=== PATIENT | female | born 1930 | race Caucasian/White ===

== ENCOUNTER 2017-12-25 19:07 | Inpatient (IN) | payer OTHER ==
[~2017-12-25] VITALS: Ht 157.5 cm; Wt 63.7 kg
[~2017-12-25 19:07] MED LIST: CALCTAB5 PO
[2017-12-25] MEDS ORDERED: SODIUM CHLORIDE 0.9% 1000ML 1,000 ML IV STA (19:23)
[2017-12-25] MEDS ORDERED: CEFTRIAXONE SOD INJ 1 GM ADDVIAL IV STA (19:24)
--- NOTE | 2017-12-25 19:34 | EMERGENCY ROOM VISIT NOTE ---
History Report prepared by Juno: Sandra Del Toro Under the Supervision of: Dr. Stefan Vazquez D.O. First contact with patient: 19:16 Chief Complaint: INFECTION Stated Complaint: INFECTION IN LEFT LEG History of Present Illness The patient is an 87 year old female who presents to the Emergency Room with complaints of a worsening infection in her left foot starting yesterday morning. The patient states that she noticed it was red and swollen yesterday. She states that she "got real sick" when it happened. She states that it feels like it has been more tender than normal. The patient denies being on any antibiotics, fever, cough, rhinorrhea, chest pain, and shortness of breath. Source of History: patient Onset: yesterday morning Position: foot (left) Quality: other (infection) Timing: worsening Associated Symptoms: No fevers, No cough, No chest pain, No SOB Note: The patient complains of her leg being tender. The patient denies the use of antibiotics and rhinorrhea. Review of Systems See HPI for pertinent positives & negatives. A total of 10 systems reviewed and were otherwise negative. Past Medical & Surgical Medical Problems: (1) HTN (hypertension) Family History No pertinent family history Social History Smoking Status: Never Smoker Alcohol Use: none Marital Status: single Housing Status: lives alone Current/Historical Medications Scheduled Aspirin (Aspirin Ec), 81 MG PO DAILY Aspirin-Caffeine (Anacin 400-32 mg), 3 TABS PO PRN Calcium (Calcium), 3 TABS PO DAILY Cholecalciferol (Vitamin D), 1 TAB PO DAILY Multivitamins/Minerals (Mvi With Minerals), 1 TAB PO DAILY Vitamin E (Vitamin E), 1 TAB PO DAILY [Bp Pill], 25 MG PO DAILY [Potassium Otc], 1 TAB PO DAILY Allergies Coded Allergies: Clavulanic Acid (Unverified Allergy, Mild, 2/5/10) Penicillins (Unverified Allergy, Mild, 2/5/10) Uncoded Allergies: BETALACTAMASEIN (Allergy, Mild, 2/5/10) Physical Exam Vital Signs Date Time Temp Pulse Resp B/P (MAP) Pulse Ox O2 Delivery O2 Flow Rate FiO2 12/25/17 20:31 103 18 144/58 95 Room Air 12/25/17 19:13 36.8 108 20 174/93 99 Room Air Physical Exam GENERAL: Sitting up in bed, alert, well appearing for stated age, no acute distress, nontoxic EYE EXAM: normal conjunctiva. OROPHARYNX: no exudate, no erythema, lips, buccal mucosa, and tongue normal and mucous membranes are moist NECK: supple, no nuchal rigidity, no adenopathy, non-tender LUNGS: Clear to auscultation. Normal chest wall mechanics HEART: no murmurs, S1 normal and S2 normal ABDOMEN: abdomen soft, non-tender, normo-active bowel sounds, no masses, no rebound or guarding. BACK: Back is symmetrical on inspection and there is no deformity, no midline tenderness, no CVA tenderness. SKIN: No bruising. Circumferential erythema around the left calf tracking up through the left thigh. Skin is warm and tender. UPPER EXTREMITIES: upper extremities are grossly normal. LOWER EXTREMITIES: Pitting edema in the left lower extremity. NEURO EXAM: Normal sensorium, cranial nerves II-XII grossly intact, normal speech, no gross weakness of arms, no gross weakness of legs. Medical Decision & Procedures ER Provider Diagnostic Interpretation: Radiology results as stated below per my review and the radiologist's interpretation: CHEST ONE VIEW PORTABLE CLINICAL HISTORY: 87 years-old Female presenting with fever. TECHNIQUE: Portable upright AP view of the chest was obtained. COMPARISON: None. FINDINGS: Atherosclerosis of the aortic arch. Cardiac silhouette normal in size. Elevation of the right hemidiaphragm. Minimal basilar opacities. No pleural effusion or pneumothorax. Degenerative changes of the thoracic spine. Old fractures of the posterior lateral left upper ribs noted. Upper abdomen normal. IMPRESSION: 1. Minimal basilar opacities likely atelectasis or scarring. No convincing evidence of acute cardiopulmonary disease. Electronically signed by: Rush Spencer M.D. 12/25/2017 8:35 PM Dictated Date/Time: 12/25/2017 8:33 PM L VENOUS DOPP LOWER EXT UNILAT CLINICAL HISTORY: 87 years-old Female presenting with lle swelling. TECHNIQUE: Real-time grayscale and color and spectral Doppler ultrasound imaging of the veins of the left lower extremity was performed. Compression and augmentation were also utilized. COMPARISON: None. FINDINGS: LEFT: Common femoral vein: Patent. Greater saphenous vein: Patent. Deep femoral vein: Patent. Femoral vein: Patent. Popliteal vein: Patent. Calf veins: Patent. Other: Subcutaneous edema. IMPRESSION: No evidence of deep venous thrombosis. Electronically signed by: Rush Spencer M.D. 12/25/2017 8:33 PM Dictated Date/Time: 12/25/2017 8:32 PM Laboratory Results 12/25/17 19:40 Red Blood Count 4.47, Mean Corpuscular Volume 88.4, Mean Corpuscular Hemoglobin 29.5, Mean Corpuscular Hemoglobin Concent 33.4, Mean Platelet Volume 12.1, Neutrophils (%) (Auto) 83.4, Lymphocytes (%) (Auto) 8.5, Monocytes (%) (Auto) 7.6, Eosinophils (%) (Auto) 0.1, Basophils (%) (Auto) 0.2, Neutrophils # (Auto) 16.11, Lymphocytes # (Auto) 1.64, Monocytes # (Auto) 1.47, Eosinophils # (Auto) 0.02, Basophils # (Auto) 0.03 12/25/17 19:40 Test 12/25/17 19:40 12/25/17 19:45 12/25/17 19:49 White Blood Count 19.31 K/uL (4.8-10.8) Red Blood Count 4.47 M/uL (4.2-5.4) Hemoglobin 13.2 g/dL (12.0-16.0) Hematocrit 39.5 % (37-47) Mean Corpuscular Volume 88.4 fL (80-100) Mean Corpuscular Hemoglobin 29.5 pg (25-34) Mean Corpuscular Hemoglobin Concent 33.4 g/dl (32-36) Platelet Count 146 K/uL (130-400) Mean Platelet Volume 12.1 fL (7.4-10.4) Neutrophils (%) (Auto) 83.4 % Lymphocytes (%) (Auto) 8.5 % Monocytes (%) (Auto) 7.6 % Eosinophils (%) (Auto) 0.1 % Basophils (%) (Auto) 0.2 % Neutrophils # (Auto) 16.11 K/uL (1.4-6.5) Lymphocytes # (Auto) 1.64 K/uL (1.2-3.4) Monocytes # (Auto) 1.47 K/uL (0.11-0.59) Eosinophils # (Auto) 0.02 K/uL (0-0.5) Basophils # (Auto) 0.03 K/uL (0-0.2) RDW Standard Deviation 45.2 fL (36.4-46.3) RDW Coefficient of Variation 13.9 % (11.5-14.5) Immature Granulocyte % (Auto) 0.2 % Immature Granulocyte # (Auto) 0.04 K/uL (0.00-0.02) Prothrombin Time 12.0 SECONDS (9.0-12.0) Prothromb Time International Ratio 1.1 (0.9-1.1) Est Creatinine Clear Calc Drug Dose 28.3 ml/min Estimated GFR () 45.7 Estimated GFR (Non- 39.4 BUN/Creatinine Ratio 24.8 (10-20) Calcium Level 8.8 mg/dl (8.5-10.1) Magnesium Level 1.8 mg/dl (1.8-2.4) Total Bilirubin 0.5 mg/dl (0.2-1) Direct Bilirubin 0.2 mg/dl (0-0.2) Aspartate Amino Transf (AST/SGOT) 49 U/L (15-37) Alanine Aminotransferase (ALT/SGPT) 26 U/L (12-78) Alkaline Phosphatase 95 U/L (45-117) Total Creatine Kinase 1145 U/L (26-192) Creatine Kinase MB 7.2 ng/ml (0.5-3.6) Creatine Kinase MB Ratio 0.6 (0-3.0) Troponin I 0.017 ng/ml (0-0.045) Total Protein 7.4 gm/dl (6.4-8.2) Albumin 3.0 gm/dl (3.4-5.0) Bedside Lactic Acid Venous 2.29 mmol/L (0.90-1.70) Bedside Hemoglobin 14.3 g/dl (12.0-16.0) Bedside Hematocrit 42 % (37-47) Bedside Sodium 137 mEq/L (135-144) Bedside Potassium 3.1 mEq/L (3.3-5.0) Bedside Chloride 95 mEq/L (101-112) Bedside Total CO2 29 mEq/l (24-31) Anion Gap 17.0 mmol/L (16-25) Bedside Blood Urea Nitrogen 30 mg/dl (7-18) Bedside Creatinine 1.3 mg/dl (0.6-1.3) Bedside Glucose (other) 115 mg/dl (70-99) Bedside Ionized Calcium (Marisela) 1.03 mmol/l (1.12-1.32) Laboratory results per my review. Medications Administered Medications (Trade) Dose Ordered Sig/Carmen Route Start Time Stop Time Status Last Admin Dose Admin Sodium Chloride 1,000 ml @ 999 mls/hr Q1H1M STAT IV 12/25/17 19:23 12/25/17 20:23 DC 12/25/17 19:54 999 MLS/HR Ceftriaxone Sodium (Rocephin Inj) 1 gm NOW STAT IV 12/25/17 19:24 12/25/17 19:25 DC 12/25/17 19:54 1 GM Potassium Chloride (Klor-Con M10) 40 meq NOW STAT PO 12/25/17 21:11 12/25/17 21:12 DC 12/25/17 21:40 40 MEQ ECG Per My Interpretation Indication: tachycardia Rate (beats per minute): 105 Rhythm: sinus tachycardia Findings: nonspecific-ST abn (Inferior, lateral), RBBB, left axis deviation ED Course ED COURSE: Vital signs were reviewed and showed situational hypertension and tachycardia. The patients medical record was reviewed The above diagnostic studies were performed and reviewed. ED treatments and interventions as stated above. 1917: The patient was evaluated in room C7. A complete history and physical examination was performed. 1922: Ordered NSS 1000 ml @ 999 mls/hr IV. 1923: Ordered Rocephin Inj 1 gm IV. 2039: Upon reevaluation, the patient is resting comfortably. I discussed my findings with the patient and she understands and agrees with the treatment plan. Based on the patients age, coexisting illnesses, exam and lab findings the decision to treat as an inpatient was made. The patient remained stable while under my care. The patient will be evaluated for further management. 2042: I reviewed the patient's case with [place]. [place] [facility] [place] She will evaluate the patient for further management. Medical Decision Differential diagnosis includes etiologies such as cellulitis, abscess, MRSA infection, DVT, necrotizing fasciitis, dermatitis, drug eruption, as well as others were entertained. Patient is an 87-year-old female who presents the ER for a cellulitis of her left lower extremity. It involves the entire calf tracking up to the groin. Patient is tachycardic in the low 100s. White count of 19,000. Please do not feel slightly low 2.9. Lactic acid was elevated at 2.2. Patient was given IV Rocephin. Patient was septic secondary to a cellulitis. She was given IV antibiotics and fluids. She was updated at bedside. She is admitted to internal medicine. Duplex of the left lower extremity was negative. Medication Reconcilliation Current Medication List: was personally reviewed by me Blood Pressure Screening Patient's blood pressure: Elevated blood pressure Blood pressure disposition: Elevated BP felt to be situational Consults Time Called: 2040 Consulting Physician: Dr. Leela KING Hospitalist Returned Call: 2042 I reviewed the patient's case with Dr. Leela KING Hospitalist. She will evaluate the patient for further management. Impression Primary Impression: Sepsis Additional Impressions: Cellulitis Hypokalemia Scribe Attestation The scribe's documentation has been prepared under my direction and personally reviewed by me in its entirety. I confirm that the note above accurately reflects all work, treatment, procedures, and medical decision making performed by me. Departure Information Dispostion Being Evaluated By Hospitalist Referrals Wilver Renee M.D. (PCP) Patient Instructions My [facility] Problem Qualifiers Primary Impression: Sepsis Sepsis type: sepsis due to unspecified organism Qualified Codes: A41.9 - Sepsis, unspecified organism Additional Impressions: Cellulitis Site of cellulitis: unspecified site Qualified Codes: L03.90 - Cellulitis, unspecified
[2017-12-25 19:58] LABS: ISTAT CREATININE 1.3 mg/dl (0.6-1.3); ISTAT IONIZED CALCIUM 1.03 mmol/l (1.12-1.32); ISTAT POTASSIUM 3.1 mEq/L (3.3-5.0)
[2017-12-25 20:25] LABS: BASO % 0.2 %; BASO ABS # 0.03 K/uL (0-0.2); EOS % 0.1 %; EOS ABS # 0.02 K/uL (0-0.5); HEMATOCRIT 39.5 % (37-47); HEMOGLOBIN 13.2 g/dL (12.0-16.0); IG# 0.04 K/uL (0.00-0.02); LYMPH % 8.5 %; LYMPH ABS # 1.64 K/uL (1.2-3.4); MEAN CELL VOLUME 88.4 fL (80-100); MEAN CORPUSCULAR HEMOGLOBIN 29.5 pg (25-34); MEAN CORPUSCULAR HGB CONC 33.4 g/dl (32-36); MEAN PLATELET VOLUME 12.1 fL (7.4-10.4); MONO % 7.6 %; MONO ABS # 1.47 K/uL (0.11-0.59); NEUT % 83.4 %; NEUT ABS # 16.11 K/uL (1.4-6.5); PLATELET COUNT 146 K/uL (130-400); RED CELL DISTRIBUTION WIDTH CV 13.9 % (11.5-14.5); RED CELL DISTRIBUTION WIDTH SD 45.2 fL (36.4-46.3); WHITE BLOOD COUNT 19.31 K/uL (4.8-10.8)
[2017-12-25 20:32] LABS: INR 1.1 (0.9-1.1)
--- NOTE | 2017-12-25 20:34 | DIAGNOSTIC IMAGING REPORT ---
L VENOUS DOPP LOWER EXT UNILAT CLINICAL HISTORY: 87 years-old Female presenting with lle swelling. TECHNIQUE: Real-time grayscale and color and spectral Doppler ultrasound imaging of the veins of the left lower extremity was performed. Compression and augmentation were also utilized. COMPARISON: None. FINDINGS: LEFT: Common femoral vein: Patent. Greater saphenous vein: Patent. Deep femoral vein: Patent. Femoral vein: Patent. Popliteal vein: Patent. Calf veins: Patent. Other: Subcutaneous edema. IMPRESSION: No evidence of deep venous thrombosis. Electronically signed by: Rush Spencer M.D. 12/25/2017 8:33 PM Dictated Date/Time: 12/25/2017 8:32 PM
--- NOTE | 2017-12-25 20:36 | DIAGNOSTIC IMAGING REPORT ---
CHEST ONE VIEW PORTABLE CLINICAL HISTORY: 87 years-old Female presenting with fever. TECHNIQUE: Portable upright AP view of the chest was obtained. COMPARISON: None. FINDINGS: Atherosclerosis of the aortic arch. Cardiac silhouette normal in size. Elevation of the right hemidiaphragm. Minimal basilar opacities. No pleural effusion or pneumothorax. Degenerative changes of the thoracic spine. Old fractures of the posterior lateral left upper ribs noted. Upper abdomen normal. IMPRESSION: 1. Minimal basilar opacities likely atelectasis or scarring. No convincing evidence of acute cardiopulmonary disease. Electronically signed by: Rush Spencer M.D. 12/25/2017 8:35 PM Dictated Date/Time: 12/25/2017 8:33 PM
[2017-12-25 20:55] LABS: CALCIUM 8.8 mg/dl (8.5-10.1); CKMB 7.2 ng/ml (0.5-3.6); CREATININE 1.23 mg/dl (0.60-1.20); POTASSIUM 2.9 mmol/L (3.5-5.1); TOTAL PROTEIN 7.4 gm/dl (6.4-8.2)
[2017-12-25] MEDS ORDERED: POTASSIUM CHLORIDE 10 MEQ TABCR PO STA (21:11)
[2017-12-25] MEDS ORDERED: CHOL400T5 PO (21:15)
[2017-12-25] MEDS ORDERED: ASPI81TA28 PO (21:15)
[2017-12-25] MEDS ORDERED: CALC600T37 PO (21:15)
[2017-12-25] MEDS ORDERED: MULT-513 PO (21:15)
[2017-12-25] MEDS ORDERED: BP PILL PO (21:15)
[2017-12-25] MEDS ORDERED: VITA1TAB4 PO (21:15)
[2017-12-25] MEDS ORDERED: POTASSIUM OTC PO (21:15)
[2017-12-25] MEDS ORDERED: ASPI400T11 PO (21:15)
[2017-12-25] MEDS ORDERED: ONDANSETRON INJ 2 MG/ML 2 ML VIAL IV PRN (21:30)
[2017-12-25] MEDS ORDERED: ACETAMINOPHEN 325 MG TAB PO PRN (21:30)
[2017-12-25 22:52] VITALS: BP 150/73; PULSE 108; TEMP 37; O2SAT 97
--- NOTE | 2017-12-25 22:52 | History and Physical ---
History & Physical Date & Time of Service: Dec 25, 2017 at 22:28 Chief Complaint: Infection In Left Leg Primary Care Physician: Wilver Renee M.D. History of Present Illness Source: patient, family Patient is a 87 year old female with no significant past medical history that presents with a left lower extremity infection. The patient states she first noticed redness of her left lower extremity on Khoa morning. She complained of some associated nausea at that time and had vomiting with breakfast, and has since had minimal PO intake of food or fluids. She has a a bunion of the left foot although no other lower extremity injuries, ulcerations, or other skin changes. She states the redness first started around the ankle and has continued to progress up the leg. She denies any pain in the lower extremity, and no systemic symptoms of infection including fevers, chills or sweats. She had a previous episode of cellulitis in the same leg several years ago requiring hospitalization, but has had no recurring episodes since. Past Medical/Surgical History Medical Problems: (1) HTN (hypertension) Family History No pertinent family history Social History Smoking Status: Never Smoker Marital Status: single Allergies Coded Allergies: Clavulanic Acid (Unverified Allergy, Mild, 06/14/09) Penicillins (Unverified Allergy, Mild, 06/14/09) Uncoded Allergies: BETALACTAMASEIN (Allergy, Mild, 06/14/09) Home Medications Scheduled Aspirin (Aspirin Ec), 81 MG PO DAILY Aspirin-Caffeine (Anacin 400-32 mg), 3 TABS PO PRN Calcium (Calcium), 3 TABS PO DAILY Cholecalciferol (Vitamin D), 1 TAB PO DAILY Multivitamins/Minerals (Mvi With Minerals), 1 TAB PO DAILY Vitamin E (Vitamin E), 1 TAB PO DAILY [Bp Pill], 25 MG PO DAILY [Potassium Otc], 1 TAB PO DAILY Review of Systems Constitutional: No fever, No chills, No sweats Respiratory: No cough, No sputum, No wheezing, No shortness of breath, No dyspnea on exertion Cardiovascular: No chest pain, No orthopnea Abdomen: No pain, No nausea, No vomiting, No diarrhea, No constipation Musculoskeletal: + swelling, No calf pain Genitourinary - Female: No dysuria, No urinary frequency, No urinary urgency Neurologic: No paralysis, No weakness, No numbness/tingling, No vertigo Endocrine: No fatigue Integumentary: + rash, + color change, + problem reported (Redness of the right leg), No itch Physical Exam Vital Signs Date Time Temp Pulse Resp B/P (MAP) Pulse Ox O2 Delivery O2 Flow Rate FiO2 12/25/17 22:16 100 18 143/80 97 12/25/17 22:00 104 18 143/80 97 Room Air 12/25/17 20:31 103 18 144/58 95 Room Air 12/25/17 19:13 36.8 108 20 174/93 99 Room Air General Appearance: WD/WN, no apparent distress Head: normocephalic, atraumatic Eyes: normal inspection, sclerae normal Neck: supple, no carotid bruits Respiratory/Chest: chest non-tender, lungs clear, normal breath sounds Cardiovascular: regular rate, rhythm, no edema, no gallop Abdomen/GI: normal bowel sounds, non tender, soft Extremities/Musculoskelatal: no calf tenderness, + pedal edema, + swelling (2+ pitting), + pertinent finding (Erythema of the left lower extremity extending from the dorsum of the foot to the medial thigh. Margins drawn to monitor progress. Shiny appearance to the skin. Circumferential erythema. No bullae, crepitus, discharge, or weeping from the skin. Warm to toouch. Nontender.) Neurologic/Psych: alert, normal mood/affect, oriented x 3 Diagnostics Laboratory Results Results Past 24 Hours Test 12/25/17 19:40 12/25/17 19:45 12/25/17 19:49 12/25/17 21:50 Range/Units White Blood Count 19.31 4.8-10.8 K/uL Red Blood Count 4.47 4.2-5.4 M/uL Hemoglobin 13.2 12.0-16.0 g/dL Hematocrit 39.5 37-47 % Mean Corpuscular Volume 88.4 80-100 fL Mean Corpuscular Hemoglobin 29.5 25-34 pg Mean Corpuscular Hemoglobin Concent 33.4 32-36 g/dl Platelet Count 146 130-400 K/uL Mean Platelet Volume 12.1 7.4-10.4 fL Neutrophils (%) (Auto) 83.4 % Lymphocytes (%) (Auto) 8.5 % Monocytes (%) (Auto) 7.6 % Eosinophils (%) (Auto) 0.1 % Basophils (%) (Auto) 0.2 % Neutrophils # (Auto) 16.11 1.4-6.5 K/uL Lymphocytes # (Auto) 1.64 1.2-3.4 K/uL Monocytes # (Auto) 1.47 0.11-0.59 K/uL Eosinophils # (Auto) 0.02 0-0.5 K/uL Basophils # (Auto) 0.03 0-0.2 K/uL RDW Standard Deviation 45.2 36.4-46.3 fL RDW Coefficient of Variation 13.9 11.5-14.5 % Immature Granulocyte % (Auto) 0.2 % Immature Granulocyte # (Auto) 0.04 0.00-0.02 K/uL Prothrombin Time 12.0 9.0-12.0 SECONDS Prothromb Time International Ratio 1.1 0.9-1.1 Sodium Level 136 136-145 mmol/L Potassium Level 2.9 3.5-5.1 mmol/L Chloride Level 97 98-107 mmol/L Carbon Dioxide Level 29 21-32 mmol/L Anion Gap 9.0 17.0 16-25 mmol/L Blood Urea Nitrogen 31 7-18 mg/dl Creatinine 1.23 0.60-1.20 mg/dl Est Creatinine Clear Calc Drug Dose 28.3 ml/min Estimated GFR () 45.7 Estimated GFR (Non- 39.4 BUN/Creatinine Ratio 24.8 10-20 Random Glucose 110 70-99 mg/dl Calcium Level 8.8 8.5-10.1 mg/dl Magnesium Level 1.8 1.8-2.4 mg/dl Total Bilirubin 0.5 0.2-1 mg/dl Direct Bilirubin 0.2 0-0.2 mg/dl Aspartate Amino Transf (AST/SGOT) 49 15-37 U/L Alanine Aminotransferase (ALT/SGPT) 26 12-78 U/L Alkaline Phosphatase 95 45-117 U/L Total Creatine Kinase 1145 26-192 U/L Creatine Kinase MB 7.2 0.5-3.6 ng/ml Creatine Kinase MB Ratio 0.6 0-3.0 Troponin I 0.017 0-0.045 ng/ml Total Protein 7.4 6.4-8.2 gm/dl Albumin 3.0 3.4-5.0 gm/dl Bedside Lactic Acid Venous 2.29 0.90-1.70 mmol/L Bedside Hemoglobin 14.3 12.0-16.0 g/dl Bedside Hematocrit 42 37-47 % Bedside Sodium 137 135-144 mEq/L Bedside Potassium 3.1 3.3-5.0 mEq/L Bedside Chloride 95 101-112 mEq/L Bedside Total CO2 29 24-31 mEq/l Bedside Blood Urea Nitrogen 30 7-18 mg/dl Bedside Creatinine 1.3 0.6-1.3 mg/dl Bedside Glucose (other) 115 70-99 mg/dl Bedside Ionized Calcium (Marisela) 1.03 1.12-1.32 mmol/l Urine Color YELLOW Urine Appearance CLEAR CLEAR Urine pH 6.5 4.5-7.5 Urine Specific Graham 1.016 1.000-1.030 Urine Protein 1+ NEG Urine Glucose (UA) NEG NEG Urine Ketones TRACE NEG Urine Occult Blood 1+ NEG Urine Nitrite NEG NEG Urine Bilirubin NEG NEG Urine Urobilinogen NEG NEG Urine Leukocyte Esterase SMALL NEG Urine WBC (Auto) 5-10 0-5 /hpf Urine RBC (Auto) 0-4 0-4 /hpf Urine Hyaline Casts (Auto) 1-5 0-5 /lpf Urine Epithelial Cells (Auto) 10-20 0-5 /lpf Urine Bacteria (Auto) NEG NEG Microbiology Results 12/25/17 Blood Culture, Received Pending 12/25/17 Blood Culture, Received Pending Impression Assessment and Plan Patient is a 87 year old female with no significant past medical history that presents with a left lower extremity infection. SIRS 2/2 LE Cellulitis - WBC 19.31 with Tachycardia - Lactic Acid 2.29 --> Repeat in 6 hour - Total CK 1145 - Blood Cultures x 2 - Daily CBC and BMP - IV NS @ 100 mls/hr (1L NS Bolus in ED) - Admit to Med/Surg Cellulitis - Rocephin 1gm IV Daily - Blood Cultures x 2 - Margins drawn around lower extremity cellulitis - Continue to monitor overnight, if continues to progress or present with worsening symptoms including crepitus or bullae low threshold for further imaging of infected extremity Hypokalemia - 3.1 - 40 mEq PO Potassium Chloride - Repeat BMP in AM KENNEDY - Creatinine of 1.23 with elevated BUN - Most likely 2/2 dehydration associate with poor PO intake - Fluids as above - Daily BMP Asymptomatic Bacteruria - Trace occult blood, WBC, and Leuk Est on UA with questionable dirty catch - Will be covered with Rocephin - Urine Culture DVT - Heparin Code Status - Full Code Resuscitation Status VTE Prophylaxis Will order VTE Prophylaxis: Yes Resident Tracking Resident Involvement: Resident Care Provided Care Provided: Adult Hospital Medicine History Patient seen and examined, chart reviewed, case discussed with and I agree with the assessment and plan as documented above. Briefly, patient is an 87yo female with history of HTN presenting with LLE cellulitis. Patient has had admission for the same in the past. She noted redness and warmth of her LLE starting on Wednesday AM which progressed to involve the leg and medial thigh. Also with nausea and vomiting. On physical exam she is afebrile, tachycardic at 103bpm, regular, BP 144/58, RR= 18 95% on room air Gen: non-toxic in appearance, AA&O x 4 HEENT: NC/AT, PERRL, EOMI, dry mucus membranes, neck supple, no JVD Heart: +S1/S2, regular, tachycardic, 2/6 AARON at 2nd right ICS with radiation across the precordium, no rubs/gallops Lungs: CTA bilaterally, no rales/rhonchi/wheezes Abd: +BS, soft, NT/ND, no masses Ext: LLE with 2+ pitting edema, warm to touch and slightly tender, severe erythema of foot, leg and into medial thigh, no crepitus/bullae, no pain beyond area of cellulitis. 1+ palpable pulses at DP and PT. sensation intact Labs and images reviewed: significant for leukocytosis, WBC=19.31, neutrophil predominant, elevated CK at 1145m K=3.1, lactate=2.29, BUN=31, Cr=1.23 Duplex US LLE negative for DVT Assessment/Plan: 87yo female with history of hypertension presenting with moderate nonpurulent cellulitis -Observation to medical floor -Blood cultures sent from ER, will follow -Ceftriaxone 1gm IV daily - if patient fails to improve or decompensates will broaden to include coverage for MRSA and Clindamycin -IVF - patient received 1L NSS in ER, will give additional liter at 100mL/hr -Repeat lactate in 6 hours -Repeat CK in AM after hydration -Monitor renal function, UOP, electrolytes. Avoid nephrotoxic agents. Renal dosing where appropriate -Electrolyte repletion -UA with +epi, no bacteria -Remainder of plan as above
[2017-12-25 23:30] VITALS: BP 150/73; PULSE 108; TEMP 37; O2SAT 97; Ht 157.5 cm; Wt 63.7 kg
[2017-12-26 08:00] VITALS: O2SAT 97
[2017-12-26 08:04] VITALS: BP 118/61; PULSE 104; TEMP 38.2; O2SAT 91
[2017-12-26] MEDS: HEPARIN SOD 5000 UNIT/0.5 ML CARP SQ SCH ×2 (08:25→17:54)
[2017-12-26 08:27] LABS: BASO % 0.1 %; BASO ABS # 0.01 K/uL (0-0.2); EOS % 0.1 %; EOS ABS # 0.01 K/uL (0-0.5); HEMATOCRIT 35.5 % (37-47); HEMOGLOBIN 11.3 g/dL (12.0-16.0); IG# 0.04 K/uL (0.00-0.02); LYMPH % 9.3 %; LYMPH ABS # 1.24 K/uL (1.2-3.4); MEAN CORPUSCULAR HEMOGLOBIN 28.3 pg (25-34); MEAN CORPUSCULAR HGB CONC 31.8 g/dl (32-36); MONO % 8.3 %; MONO ABS # 1.11 K/uL (0.11-0.59); NEUT % 81.9 %; NEUT ABS # 10.92 K/uL (1.4-6.5); PLATELET COUNT 124 K/uL (130-400); RED CELL DISTRIBUTION WIDTH CV 14.1 % (11.5-14.5); RED CELL DISTRIBUTION WIDTH SD 46.1 fL (36.4-46.3); WHITE BLOOD COUNT 13.33 K/uL (4.8-10.8)
[2017-12-26] MEDS ORDERED: SODIUM CHLORIDE 0.9% 1000ML 1,000 ML IV SCH (08:30)
[2017-12-26 08:42] LABS: CALCIUM 8.1 mg/dl (8.5-10.1); POTASSIUM 3.3 mmol/L (3.5-5.1)
[2017-12-26 08:43] LABS: CREATININE 0.82 mg/dl (0.60-1.20)
[2017-12-26] MEDS ORDERED: POTASSIUM CHLORIDE 20 MEQ TABCR PO STA (09:34)
--- NOTE | 2017-12-26 14:27 | Family Medicine Progress Note ---
Progress Note Date of Service Dec 26, 2017. Subjective Pt evaluation today including: conversation w/ patient, physical exam, chart review, lab review Pain: minimal L leg pain PO Intake: tolerating but decreased appetite Voiding: no voiding problems This AM pt denied any nausea/vomiting and reported improvement in L leg edema and erythema Also denied any hematuria, dysuria, or increased urinary frequency Constitutional: No fever Respiratory: No shortness of breath Cardiovascular: No chest pain Abdomen: No pain, No nausea, No vomiting Musculoskeletal: + problem reported (L leg pain and skin infection ) Female : No dysuria, No urinary frequency, No hematuria Neurologic: No problem reported Medications Current Inpatient Medications Medications (Trade) Dose Ordered Sig/Carmen Route Start Time Stop Time Status Last Admin Dose Admin Acetaminophen (Tylenol Tab) 650 mg Q4H PRN PO 12/25/17 21:30 01/24/18 21:29 Ondansetron HCl (Zofran Inj) 4 mg Q6H PRN IV 12/25/17 21:30 01/24/18 21:29 Heparin Sodium (Porcine) (Heparin Sq 5000 Unit/0.5ml) 5,000 unit Q12H SQ 12/26/17 06:00 01/25/18 05:59 12/26/17 08:25 5,000 UNIT Ceftriaxone Sodium 1 gm/ Dextrose 50 ml @ 100 mls/hr Q24H IV 12/26/17 20:00 01/04/18 19:59 Sodium Chloride 1,000 ml @ 100 mls/hr Q10H IV 12/26/17 08:30 12/26/17 18:29 12/26/17 08:36 100 MLS/HR Objective Vital Signs Date Time Temp Pulse Resp B/P (MAP) Pulse Ox O2 Delivery O2 Flow Rate FiO2 12/26/17 08:04 38.2 104 18 118/61 (80) 91 Room Air 12/26/17 08:00 97 Room Air 12/25/17 23:30 37.0 108 18 150/73 97 Room Air 12/25/17 22:52 37.0 108 18 150/73 (98) 97 Room Air 12/25/17 22:16 100 18 143/80 97 12/25/17 22:00 104 18 143/80 97 Room Air 12/25/17 20:31 103 18 144/58 95 Room Air 12/25/17 19:13 36.8 108 20 174/93 99 Room Air Physical Exam General Appearance: no apparent distress Eyes: normal inspection ENT: hearing grossly normal Respiratory/Chest: + decreased breath sounds (bi-basilar), + crackles (LLL) Cardiovascular: regular rate, rhythm, + systolic murmur (2/6) Abdomen: normal bowel sounds, non tender, soft Extremities: non-tender (RLE), no pedal edema (R leg) Neurologic/Psychiatric: alert, oriented x 3 Skin: + pertinent finding (LE 1+ edema with now improved erythema (below margins drawan and less intense), warm to touch, and slightly TTP, no crepitus or bullae) Laboratory Results 12/26/17 07:34 Red Blood Count 3.99, Mean Corpuscular Volume 89.0, Mean Corpuscular Hemoglobin 28.3, Mean Corpuscular Hemoglobin Concent 31.8, Mean Platelet Volume 12.0, Neutrophils (%) (Auto) 81.9, Lymphocytes (%) (Auto) 9.3, Monocytes (%) (Auto) 8.3, Eosinophils (%) (Auto) 0.1, Basophils (%) (Auto) 0.1, Neutrophils # (Auto) 10.92, Lymphocytes # (Auto) 1.24, Monocytes # (Auto) 1.11, Eosinophils # (Auto) 0.01, Basophils # (Auto) 0.01 12/26/17 07:34 Test 12/25/17 19:40 12/25/17 19:45 12/25/17 19:49 12/25/17 21:50 Prothrombin Time 12.0 SECONDS (9.0-12.0) Prothromb Time International Ratio 1.1 (0.9-1.1) Magnesium Level 1.8 mg/dl (1.8-2.4) Total Bilirubin 0.5 mg/dl (0.2-1) Direct Bilirubin 0.2 mg/dl (0-0.2) Aspartate Amino Transf (AST/SGOT) 49 U/L (15-37) Alanine Aminotransferase (ALT/SGPT) 26 U/L (12-78) Alkaline Phosphatase 95 U/L (45-117) Creatine Kinase MB 7.2 ng/ml (0.5-3.6) Creatine Kinase MB Ratio 0.6 (0-3.0) Troponin I 0.017 ng/ml (0-0.045) Total Protein 7.4 gm/dl (6.4-8.2) Albumin 3.0 gm/dl (3.4-5.0) Bedside Lactic Acid Venous 2.29 mmol/L (0.90-1.70) Bedside Hemoglobin 14.3 g/dl (12.0-16.0) Bedside Hematocrit 42 % (37-47) Bedside Sodium 137 mEq/L (135-144) Bedside Potassium 3.1 mEq/L (3.3-5.0) Bedside Chloride 95 mEq/L (101-112) Bedside Total CO2 29 mEq/l (24-31) Bedside Blood Urea Nitrogen 30 mg/dl (7-18) Bedside Creatinine 1.3 mg/dl (0.6-1.3) Bedside Glucose (other) 115 mg/dl (70-99) Bedside Ionized Calcium (Marisela) 1.03 mmol/l (1.12-1.32) Urine Color YELLOW Urine Appearance CLEAR (CLEAR) Urine pH 6.5 (4.5-7.5) Urine Specific [employer] 1.016 (1.000-1.030) Urine Protein 1+ (NEG) Urine Glucose (UA) NEG (NEG) Urine Ketones TRACE (NEG) Urine Occult Blood 1+ (NEG) Urine Nitrite NEG (NEG) Urine Bilirubin NEG (NEG) Urine Urobilinogen NEG (NEG) Urine Leukocyte Esterase SMALL (NEG) Urine WBC (Auto) 5-10 /hpf (0-5) Urine RBC (Auto) 0-4 /hpf (0-4) Urine Hyaline Casts (Auto) 1-5 /lpf (0-5) Urine Epithelial Cells (Auto) 10-20 /lpf (0-5) Urine Bacteria (Auto) NEG (NEG) Test 12/26/17 01:45 12/26/17 07:34 Lactic Acid Level 0.7 mmol/L (0.4-2.0) White Blood Count 13.33 K/uL (4.8-10.8) Red Blood Count 3.99 M/uL (4.2-5.4) Hemoglobin 11.3 g/dL (12.0-16.0) Hematocrit 35.5 % (37-47) Mean Corpuscular Volume 89.0 fL (80-100) Mean Corpuscular Hemoglobin 28.3 pg (25-34) Mean Corpuscular Hemoglobin Concent 31.8 g/dl (32-36) Platelet Count 124 K/uL (130-400) Mean Platelet Volume 12.0 fL (7.4-10.4) Neutrophils (%) (Auto) 81.9 % Lymphocytes (%) (Auto) 9.3 % Monocytes (%) (Auto) 8.3 % Eosinophils (%) (Auto) 0.1 % Basophils (%) (Auto) 0.1 % Neutrophils # (Auto) 10.92 K/uL (1.4-6.5) Lymphocytes # (Auto) 1.24 K/uL (1.2-3.4) Monocytes # (Auto) 1.11 K/uL (0.11-0.59) Eosinophils # (Auto) 0.01 K/uL (0-0.5) Basophils # (Auto) 0.01 K/uL (0-0.2) RDW Standard Deviation 46.1 fL (36.4-46.3) RDW Coefficient of Variation 14.1 % (11.5-14.5) Immature Granulocyte % (Auto) 0.3 % Immature Granulocyte # (Auto) 0.04 K/uL (0.00-0.02) Platelet Estimate NORMAL Anion Gap 6.0 mmol/L (3-11) Est Creatinine Clear Calc Drug Dose 42.4 ml/min Estimated GFR () 74.6 Estimated GFR (Non- 64.3 BUN/Creatinine Ratio 25.4 (10-20) Calcium Level 8.1 mg/dl (8.5-10.1) Total Creatine Kinase 547 U/L (26-192) Assessment and Plan 87 yoF with hx of HTN admitted for left lower extremity cellulitis of unknown etiology. Previous RLE cellulitis several years ago SIRS in the setting of LE Cellulitis (now improving) - Initially WBC 19.31 with Tachycardia - This AM WBC 13.3 with persistent tachycardia - CXR minimal bibasilar opacities c/w atelectasis - LLE ultrasound: no DVT, subcutaneous edema - Lactic Acid 2.29 --> 0.7 - Total CK 1145 --> 547 - Blood Cultures x 2 - pending - Continue IVF NS at 100mls/hr - Continue Rocephin 1g IV daily - Monitor CBC and BMP Atelectasis - LLL crackles appreciated - No hypoxemia or tachypnea - IS ordered - Continue to monitor Hypokalemia improving - Initially 3.1 improved to 3.3 this AM - repleted - Repeat BMP in AM Mild KENNEDY likely prerenal 2/2 dehydration from poor PO intake - improved - Cr 1.23 with elevated BUN of 30 initially - This AM Cr 0.84 and BUN 21 - Continue IVF NS at 100mls/hr - BMP tomorrow AM Asymptomatic Bacteruria - UA: trace ketones, 1+ occult blood, WBC 5-10, small Leuk Est questionable dirty catch - On Rocephin which should adequate cover - Urine Culture pending DVT - Heparin Code Status - Full Code Resident Involvement: Resident Care Provided Care Provided: Adult Hospital Medicine Assessment/Plan Resident Physician Supervision Note: I was present with Dr. Juan during the history and exam. I discussed the case with the resident and agree with the findings and plan as documented in the note. Any exceptions or clarifications are listed here: Pt seen and examined at bedside. No acute events since admission. Pt reports improvement of LLE pain and swelling since starting IV abx. On examination - considerably erythematous and mildly TTP LLE which has receded approx 4cm from the demarcated line and whose intensity has decreased in the proximal regions of concern. S1/S2 nl RRR 2/6 AARON. CTAB. LE cellulitis w/ SIRS on presentation - f/u Cx. Continue IV rocephin. Hypokalemia - 3.3 - repleted, trend in AM
[2017-12-26 15:32] VITALS: BP 117/68; PULSE 99; TEMP 37.8; O2SAT 90
[2017-12-26 16:00] VITALS: O2SAT 90
[2017-12-26] MEDS ORDERED: CEFTRIAXONE SOD INJ 1 GM ADDVIAL IV SCH (20:00)
[2017-12-26] MEDS ORDERED: CEFTRIAXONE SOD INJ 1000 MG in DEXTROSE 5% 50ML IV SCH (20:00)
[2017-12-26 23:00] VITALS: BP 133/70; PULSE 93; TEMP 37.5; O2SAT 92
[2017-12-27] MEDS: HEPARIN SOD 5000 UNIT/0.5 ML CARP SQ SCH (06:38)
[2017-12-27 07:06] VITALS: BP 116/69; PULSE 86; TEMP 36.8; O2SAT 90
[2017-12-27 07:21] LABS: HEMATOCRIT 34.8 % (37-47); HEMOGLOBIN 11.3 g/dL (12.0-16.0); MEAN CORPUSCULAR HEMOGLOBIN 28.9 pg (25-34); MEAN CORPUSCULAR HGB CONC 32.5 g/dl (32-36); PLATELET COUNT 123 K/uL (130-400); RED CELL DISTRIBUTION WIDTH CV 14.2 % (11.5-14.5); RED CELL DISTRIBUTION WIDTH SD 46.2 fL (36.4-46.3); WHITE BLOOD COUNT 8.94 K/uL (4.8-10.8)
[2017-12-27 07:52] LABS: BASO % 0.1 %; BASO ABS # 0.01 K/uL (0-0.2); EOS % 1.3 %; EOS ABS # 0.12 K/uL (0-0.5); IG# 0.03 K/uL (0.00-0.02); LYMPH % 17.4 %; LYMPH ABS # 1.56 K/uL (1.2-3.4); MONO % 9.4 %; MONO ABS # 0.84 K/uL (0.11-0.59); NEUT % 71.5 %; NEUT ABS # 6.38 K/uL (1.4-6.5)
[2017-12-27 08:13] LABS: CALCIUM 7.9 mg/dl (8.5-10.1); CREATININE 0.7 mg/dl (0.60-1.20); POTASSIUM 3.6 mmol/L (3.5-5.1)
--- NOTE | 2017-12-27 10:58 | Discharge Instructions ---
Discharge Instructions Date of Service Dec 27, 2017. Admission Reason for Admission: Cellulitis Discharge Discharge Diagnosis / Problem: Cellulitis of left leg Discharge Goals Goal(s): Decrease discomfort, Improve function Activity Recommendations Activity Limitations: resume your previous activity . Instructions / Follow-Up Instructions / Follow-Up You were admitted to [facility] due to a skin infection of your left leg. You were treated with IV antibiotics, and we will be sending you home with 9 more days of antibiotics to complete the course of treatment. Please take your first dose tonight. We also checked an ultrasound of your left leg to ensure you did not have a blood clot, and this was normal, without any evidence for a clot. Of note , your platelets were on the lower side when you were in the hospital. This does not require emergent treatment, but we do recommend following up with your primary care physician about this. If you notice your leg becoming more red, swollen, or painful, or you experience fever/chills, please contact your doctor. Current Hospital Diet Patient's current hospital diet: Regular Diet Discharge Diet Recommended Diet: Regular Diet Pending Studies Studies pending at discharge: no Medical Emergencies . Who to Call and When: Medical Emergencies: If at any time you feel your situation is an emergency, please call 911 immediately. . Non-Emergent Contact Non-Emergency issues call your: Primary Care Provider . . "Provider Documentation" section prepared by Cora Sutherland. .
--- NOTE | 2017-12-27 11:11 | Discharge Summary ---
Discharge Summary Date of Service Dec 27, 2017. Discharge Summary Admission Date: Dec 25, 2017 at 21:40 Discharge Date: Dec 27, 2017 Discharge Disposition: Home Principal Diagnosis: Cellulitis Left Leg Problems/Secondary Diagnoses: 1) Prerenal Azotemia 2) Hypertension Procedures: CXR IMPRESSION: 1. Minimal basilar opacities likely atelectasis or scarring. No convincing evidence of acute cardiopulmonary disease. Left Leg Venous Dopplers IMPRESSION: No evidence of deep venous thrombosis. Medication Reconciliation New Medications: Cefdinir (Omnicef) 300 Mg Cap 300 MG PO Q12H for 8 Days, #15 CAP Continued Medications: Aspirin (Aspirin Ec) 81 Mg Tab 81 MG PO DAILY Aspirin-Caffeine (Anacin 400-32 mg) 1 Tab Tab 3 TABS PO PRN Calcium (Calcium) 600 Mg Tab 3 TABS PO DAILY Cholecalciferol (Vitamin D) Unknown Strength Tab 1 TAB PO DAILY Multivitamins/Minerals (Mvi With Minerals) Tab 1 TAB PO DAILY, TAB Vitamin E (Vitamin E) Unknown Strength Tab 1 TAB PO DAILY [Bp Pill] () 25 MG PO DAILY [Potassium Otc] () 1 TAB PO DAILY Discharge Exam Ms. Saucedo reports she feels well today. She denies pain in her left leg and states she has been able to ambulate without difficulty. She denies fever, chills, and has no other complaints today. Review of Systems: Constitutional: No fever, No chills Respiratory: No cough, No shortness of breath Cardiovascular: No chest pain Abdomen: No pain, No nausea, No vomiting Musculoskeletal: No joint pain, No muscle pain Physical Exam: General Appearance: WD/WN, no apparent distress Respiratory/Chest: lungs clear, normal breath sounds, no respiratory distress, no accessory muscle use Cardiovascular: regular rate, rhythm, no edema Abdomen / GI: non tender, soft Extremities: + pertinent finding (left foot and calf swollen and erythematous. Erythema mild and well below drawn line. ) Hospital Course Ms. Saucedo is an 87 year old female with a history of hypertension who was admitted for left lower extremity cellulitis without obvious cause. SIRS in the setting of LE Cellulitis (now improving) - unsure of cause of cellulitis -> no skin breaks/venous disease present - Initially found to have an elevated WCC with tachycardia -> WCC downtrended to normal on d/c - LLE ultrasound: no DVT, subcutaneous edema - Blood Cultures x 2 - preliminary negative - treated with Rocephin 1g IV daily x 2 days - she will be discharged with 300mg cefdinir BID x 8 days to complete a course of 10 days of abx Hypokalemia improving - Initially 3.1, repleted and improved to 3.6 on day of discharge Mild KENNEDY likely prerenal 2/2 dehydration from poor PO intake - improved - Cr 1.23 with elevated BUN of 30 initially - treated with IVF - improved to BUN of 13 and creatinine of 0.7 on discharge Thrombocytopenia - platelets low at 123 - unsure if chronic as no prior platelet level to compare with - no concern for bleeding - f/u as outpatient Resident Physician Supervision Note: I interviewed and examined the patient. Discussed with Dr. Sutherland and agree with findings and plan as documented in the note. Any exceptions or clarifications are listed here: None Documented By: Stefan Mosqueda feeling better leg looking better feels up to going home cecile noted nad breathing unlabored dull redness of leg no longer appearing acute cellulitis - stable for discharge as above Total Time Spent: Less than 30 minutes This includes examination of the patient, discharge planning, medication reconciliation, and communication with other providers. Discharge Instructions Please refer to the electronic Patient Visit Report (Discharge Instructions) for additional information. Additional Copies To Wilver Renee M.D. Resident Tracking Resident Involvement: Resident Care Provided Care Provided: Adult Hospital Medicine
[2017-12-27] MEDS ORDERED: CEFD1CAP14 PO ×2 (13:05→13:13)
[2017-12-27] MEDS ORDERED: CEFDINIR 300 MG CAP PO ONE (13:45)
[2017-12-27 14:47] VITALS: BP 116/69; PULSE 86; TEMP 36.8; O2SAT 90
[2017-12-27 15:32] VITALS: BP 134/73; PULSE 90; TEMP 37.2; O2SAT 92
== END 2017-12-27 17:40 | disposition home or self-care (01) | DRG 872 ==
LOC: C.EDB 19:08 → C.MS2W 21:40 → ENRESERV 21:59
PROVIDERS: ADMIT Student in an Organized Health Care Education/Training Program; ATTEND Family Medicine
DX: A41.9 Sepsis, unspecified organism (principal); L03.116 Cellulitis of left lower limb; N17.9 Acute kidney failure, unspecified; Z79.82 Long term (current) use of aspirin; R00.0 Tachycardia, unspecified; E87.6 Hypokalemia; R79.89 Other specified abnormal findings of blood chemistry; I10 Essential (primary) hypertension

== ENCOUNTER 2020-01-12 08:46 | Observation (INO) ==
--- NOTE | 2019-12-14 11:46 | PAT Medication Instructions ---
Medication Instructions Date of Service December 14, 2019 Home Medications Medication Instructions Recorded tramadol 50 mg tablet See Rx Instructions PO Q8H PRN #90 11/01/19 tab tramadol 50 mg tablet See Rx Instructions PO Q8H PRN Potassium 1 tab PO QAM aspirin [Aspir-81] 81 mg PO QAM calcium carbonate-vitamin D3 [Calcium 600 + D(3)] 1 cap PO QAM hydrochlorothiazide 25 mg PO QAM multivitamin 1 tab PO QAM DO NOT take the morning of surgery Potassium 1 tab PO QAM calcium carbonate-vitamin D3 [Calcium 600 + D(3)] 1 cap PO QAM hydrochlorothiazide 25 mg PO QAM multivitamin 1 tab PO QAM Take morning of surgery With a small sip of water, OTHERWISE NOTHING TO EAT OR DRINK AFTER MIDNIGHT: tramadol 50 mg tablet See Rx Instructions PO Q8H PRN (okay to take up to 4 hours prior to surgery if needed) aspirin [Aspir-81] 81 mg PO QAM Take evening before surgery tramadol 50 mg tablet See Rx Instructions PO Q8H PRN (if needed) Other Notes If you have any questions please call us at [phone] or [phone] or [phone] or [phone]
--- NOTE | 2019-12-15 10:36 | Anesthesiology Consultation ---
Date of Service December 15, 2019 Assessment & Plan (1) Encounter for pre-operative examination: COVID Status: As of 12/14 assessment, patient denies travel to endemic area, known exposure/sick contacts, or symptoms of COVID19. Patient instructed that they and their household members must follow strict social distancing guidelines, wear a mask in public and avoid travel for 14 days prior to surgery. Preoperative COVID19 testing to be completed prior to surgery per surgeon's arrangements. Patient made aware to self-isolate as much as possible between COVID testing and surgery. Discussed risks and benefits of spinal vs general anesthesia. Pt declines SAB at this time, requests general anesthesia. Significant cardiac murmur and carotid bruit vs radiation from murmur noted on exam at PAT. Will f/u with PCP for further evaluation prior to surgery. Chart Review Chart Review: Acceptable Risk for Surgery (pending echo/carotids/pcp clearance) and Patient seen in Pre Admission Testing Consults Requested medical Teaching & Discussion Instructed NPO after midnight before surgery, except medications with 15 cc of water. Medication instructions provided according to the [facility] guidelines. History Surgery Operation Date: 01/12/20 13:35 Proposed Procedures p Right Anterior Total Hip Arthroplasty - James Terrazas, DO Height/Weight Height: 5 ft 3 in Weight: 56.9 kg Allergies Allergy/AdvReac Type Severity Reaction Status Date / Time amoxicillin [From Augmentin] Allergy Mild Rash Verified 12/12/19 12:07 clavulanic acid Allergy Mild Rash Verified 12/12/19 12:07 Penicillins Allergy Mild Rash Verified 12/12/19 12:07 Medications Home Medications Medication Instructions Recorded Confirmed Last Taken tramadol 50 mg tablet See Rx Instructions PO Q8H PRN #90 11/01/19 12/12/19 Unknown tab Potassium 1 tab PO QAM 12/12/19 12/12/19 Unknown aspirin [Aspir-81] 81 mg PO QAM 12/12/19 12/12/19 Unknown calcium carbonate-vitamin D3 1 cap PO QAM 12/12/19 12/12/19 Unknown [Calcium 600 + D(3)] hydrochlorothiazide 25 mg PO QAM 12/12/19 12/12/19 Unknown multivitamin 1 tab PO QAM 12/12/19 12/12/19 Unknown Past Medical History Medical History (Updated 12/18/19 @ 09:36 by Yevgeniy Tamez) Cardiac murmur Noted on exam at PAT HTN (hypertension) (Chronic) Migraine HX Osteoarthritis (Chronic) Osteoporosis Exercise / Class Metabolic Activity II 4-5 Yardwork/Stairs/Walk up hill (Limited by hip pain but denies CP or SOB with 1 FOS) Past Family History Family History (Updated 12/12/19 @ 11:55 by Mary Graham RN) Family/Other Family history of diabetes mellitus NEPHEW Other No pertinent family history Denies family history of Ovarian cancer Prostate cancer Myocardial infarction Breast cancer Colorectal cancer Past Surgical History Surgical History History of fracture of lower extremity LEFT LEG Past Anesthesia History No Hx of Anesthesia Complications and No Family Hx of Anesthesia Complications History of PONV No Hx of PONV and No Hx of Motion Sickness Social History Smoking Status: Never smoker Do You Dip or Chew Tobacco: No Hx Alcohol Use: No Hx Substance Use: No Review of Systems Pt denies any recent chest pain, shortness of breath, palpitations, cough, fever, URI, or uncontrolled acid reflux. Physical Exam Vital Signs BP: 134/76 P: 90bpm SPO2: 95% RA T: 98.2 F R: 12 ENMT Mouth: + dentures and + edentulous Thyromental Distance: < 3.5 Finger Breadths (2.5) Mallampati Class: II Neck normal visual inspection; neck extension not limited Respiratory normal respiratory effort Auscultation: lungs clear to auscultation bilaterally Diminished B/L Cardiovascular Rate/Rhythm: regular rate and regular rhythm Heart Sounds: + murmur (II/ AARON) Vessels: + carotid bruit (L sided, possible radiation from murmur) Extremities: + edema (LLE 1+, baseline per pt -- h/o traumatic fracture) Testing Laboratory Results 12/15/19 10:53 12/15/19 10:53 PT 11.4 Seconds (9.0-12.0) 12/15/19 10:53 INR 1.1 (0.9-1.1) 12/15/19 10:53 APTT 26.8 Seconds (21.0-31.0) 12/15/19 10:53 Blood Type O Positive 12/15/19 10:53 Antibody Screen NEGATIVE 12/15/19 10:53 Electrocardiogram Date: 12/15/19 Findings: + NSR @ (89bpm) and + RBBB Compared to EKG from 12/25/17, TWI no longer evident in inferior leads. Chest X-Ray Date: 12/15/19 Findings: + NAD
--- NOTE | 2019-12-15 11:37 | XRay Report ---
XR chest Pre-admission PA/Lat CLINICAL HISTORY: pat COMPARISON STUDY: No previous studies for comparison. FINDINGS: The bones soft tissues and hemidiaphragms are normal. The cardiomediastinal silhouette is n ormal. The lungs are clear. The pulmonary vasculature is normal. IMPRESSION: Negative chest. ACT 112: Negative or not required by law. The above report was generated using voice recognition software. It may contain grammatical, syntax or spelling errors. Electronically signed by: Sami Corado M.D. 12/15/2019 11:35 AM
[2019-12-15 11:50] LABS: Basophils # (auto) 0.01 K/uL (0-0.2); Basophils % (auto) 0.2 %; Eosinophils # (auto) 0.07 K/uL (0-0.5); Eosinophils % (auto) 1.2 %; Hemoglobin 13.5 g/dL (12.0-16.0); Immature Granulocytes # (auto) 0.01 K/uL (0.00-0.02); Immature Granulocytes % (auto) 0.2 %; Lymphocytes # (auto) 1.31 K/uL (1.2-3.4); Lymphocytes % (auto) 22.6 %; Mean Corpuscular Hemoglobin 28.9 pg (25-34); Mean Corpuscular Hgb Conc 32.9 g/dL (32-36); Mean Corpuscular Volume 87.8 fL (80-100); Mean Platelet Volume 12.4 fL (7.4-10.4); Monocytes # (auto) 0.48 K/uL (0.11-0.59); Monocytes % (auto) 8.3 %; Neutrophils # (auto) 3.91 K/uL (1.4-6.5); Neutrophils % (auto) 67.5 %; Platelet Count 151 K/uL (130-400); RDW Coefficient of Variation 13.6 % (11.5-14.5); RDW Standard Deviation 43.7 fL (36.4-46.3); Red Blood Count 4.67 M/uL (4.2-5.4); White Blood Count 5.79 K/uL (4.8-10.8)
[2019-12-15 11:58] LABS: BUN Creatinine Ratio 19.8 (10-20); Calcium 8.9 mg/dl (8.5-10.1); Creatinine Clr Calc Pharmacy 42.1 ml/min; Est GFR (African American) 81.9; Est GFR (Non-African American) 70.7; Potassium 3.4 mmol/L (3.5-5.1)
[2019-12-15 12:05] LABS: INR 1.1 (0.9-1.1); Partial Thromboplastin Time 26.8 Seconds (21.0-31.0); Prothrombin Time 11.4 Seconds (9.0-12.0)
--- NOTE | 2019-12-15 13:29 | Electrocardiogram Report ---
Test Reason : Blood Pressure : / mmHG Vent. Rate : 089 BPM Atrial Rate : 089 BPM P-R Int : 206 ms QRS Dur : 150 ms QT Int : 418 ms P-R-T Axes : 076 -17 041 degrees QTc Int : 508 ms Normal sinus rhythm Right bundle branch block Abnormal ECG When compared with ECG of 25-DEC-2017 19:31, T wave inversion no longer evident in Inferior leads Confirmed by Kael López ([id number]) on 12/15/2019 1:29:19 PM Referred By: James Terrazas Confirmed By:Rudy López
--- NOTE | 2020-01-10 07:07 | History & Physical Report ---
Date of Service January 10, 2020 Assessment & Plan (1) Osteoarthritis of right hip: We will proceed with a right anterior total of arthroplasty. Postoperatively she will be started on aspirin for DVT prophylaxis and kept overnight in the hospital for postoperative medical management. She will talk to case management about therapy upon discharge. Present on Admission?: Yes History of Present Illness Chief Complaint: Primary osteoarthritis of the right hip Primary Care Provider: Ibis Jarrett MD Heather is a pleasant 89-year-old female who lives alone up in the [facility]. She has friends and family nearby. She normally ambulates without assistance but over the past few months she has been ambulating with a cane and more of a wheelchair. She is having severe right hip and groin pain. She cannot tolerate it anymore. X-rays and clinical examination have been diagnostic for advanced osteoarthritis of the right hip. After failing conservative treatment, she has elected to proceed with a right anterior total hip arthroplasty. Allergies Allergy/AdvReac Type Severity Reaction Status Date / Time amoxicillin [From Augmentin] Allergy Mild Rash Verified 01/03/20 11:58 clavulanic acid Allergy Mild Rash Verified 01/03/20 11:58 Penicillins Allergy Mild Rash Verified 01/03/20 11:58 Home Medications Home Medications Medication Instructions Recorded Confirmed Type aspirin [Aspir-81] 81 mg PO QAM 12/12/19 01/03/20 History calcium carbonate-vitamin D3 1 cap PO QAM 12/12/19 01/03/20 History [Calcium 600 + D(3)] multivitamin 1 tab PO QAM 12/12/19 01/03/20 History tramadol 50 mg tablet See Rx Instructions PO Q8H PRN #90 12/19/19 01/03/20 Rx tab hydrochlorothiazide 25 mg tablet 25 mg PO QAM #90 tab 12/25/19 01/03/20 Rx potassium 99 mg tablet 99 mg PO DAILY tab 01/03/20 01/03/20 History Past Med/Surg History Medical History Cardiac murmur Noted on exam at PAT HTN (hypertension) Migraine HX Osteoarthritis Osteoporosis Surgical History History of fracture of lower extremity LEFT LEG Family History Family/Other Family history of diabetes mellitus NEPHEW Other No pertinent family history Denies family history of Ovarian cancer Prostate cancer Myocardial infarction Breast cancer Colorectal cancer Social History Smoking Status: Never smoker Second Hand Exposure: No; Hx Alcohol Use: No Hx Substance Use: No Preferred Language: Latvian Communication Ability: Effective Visual Impairment: No Limitations Hearing Ability: Normal Facilities Clerk Required: No Beliefs That Will Affect Care: None marital status: Single Current Living Situation: Alone current occupational status: retired Feels Safe at Home: Yes Dental Care, Regularly: No Physical Activity Frequency: Does not Exercise Seatbelt Use: always Sunscreen Use: No Review of Systems Review of Systems: All systems reviewed & are unremarkable except as noted in HPI & below Physical Exam Constitutional: WD/WN, vitals as above Eyes: PERRL, conjunctivae normal, anicteric sclerae ENMT: external ear and nose normal, oropharynx normal Neck: trachea midline, no thyromegaly Respiratory: normal respiratory effort Cardiovascular: RRR, no murmur, no edema Gastrointestinal (Abdomen): normal bowel sounds, soft, nontender, no hepatosplenomegaly Musculoskeletal: Physical examination of the right hip reveals decreased range of motion with flexion, internal and external rotation. There is significant groin pain with forced internal rotation of the hip his leg lengths are essentially equal. Psychiatric: A+Ox3, euthymic affect Results & Data Results & Data ([facility]) Diagnostic Findings Radiographs of the right hip and pelvis demonstrate advanced osteoarthritis with joint space narrowing osteophyte formation and [id number] articulation. PG Care Time/CCT Total # of Minutes Spent Total Time Spent with Patient: Total time spent is greater than 50% in coordination of care (as documented) at patient's floor/unit and/or counseling patient: Coding Level of Care Code 69385 Initial Inpt Care Lvl 2 Diagnoses Osteoarthritis of right hip M16.11
[~2020-01-12 08:46] MED LIST changes: +ACETAMINOPHEN 500 MG TAB PO SCH; -CALCTAB5 PO; +CEFAZOLIN 1000MG 1,000 MG/7.5 ML SYR IV SCH; +FAMOTIDINE 20 MG TAB PO SCH; +GABAPENTIN 300 MG CAP PO SCH; +LIDOCAINE HCL 2% 2 ML VIAL/AMP(20MG/ML) INFIL ONE; +LR 15ML/HR IV SCH; +LR 60ML/HR IV SCH; +ONDANSETRON INJ 2 MG/ML 2 ML VIAL ONE; +PROPOFOL IV EMULSION 10 MG/ML 20 ML VIAL IV ONE; +ROCURONIUM BROMIDE 10 MG/ML 5 ML VIAL IV ONE; +ROPIVACAINE 0.5% HCL/PF 150 MG, BUPIVACAINE 0.5% MPF 30 ML, EPINEPHrine 30MG/30ML (OR U... INSTIL SCH; +TRANEXAMIC ACID 1,000 MG **IV Intra-op IV SCH; +TRANEXAMIC ACID 1,000 MG **IV Pre-op IV SCH; +dexAMETHasone 4 MG TAB PO SCH; +fentaNYL citrate 100 MCG/2 ML VIAL ONE
[2020-01-12] MEDS ORDERED: BUPIVACAINE 0.5 % 5 MG/1 ML PF 10ML VIAL ONE (09:21)
--- NOTE | 2020-01-12 09:55 | History & Physical Bridge Note ---
Date of Service January 12, 2020 History & Physical Bridge Note I have examined the patient, reviewed the History & Physical and in the interval since the performance of the History & Physical I have noted the following changes of clinical significance: no changes noted
[2020-01-12] MEDS ORDERED: ORTHO JOINT ANESTHETIC ONE (10:38)
[2020-01-12] MEDS ORDERED: ATROPINE SULFATE 0.1 MG/ML 10ML SYR IV PRN (10:44)
[2020-01-12] MEDS ORDERED: ONDANSETRON INJ 2 MG/ML 2 ML VIAL IV PRN ×2 (10:44→15:28)
[2020-01-12] MEDS ORDERED: fentaNYL citrate 100 MCG/2 ML VIAL IV PRN (10:44)
[2020-01-12] MEDS ORDERED: ePHEDrine sulfate 50 MG/ML AMP IV PRN (10:44)
[2020-01-12] MEDS ORDERED: HYDROmorphone INJ 2 MG/ML SYR/VIAL ONE (12:37)
--- NOTE | 2020-01-12 13:39 | Operative Report ---
PG Post Operative Report Pre & Post Diagnosis Operation Date: 01/12/20 11:20 Pre-Op Diagnosis: Degenerative Joint Disease Right Hip Post-Op Diagnosis: Degenerative Joint Disease Right Hip I identified the patient and participated in the time-out.: Yes Procedure Operation Date: 01/12/20 11:20 Actual Procedures p Right Anterior Total Hip Arthroplasty(Right) - James Terrazas DO Surgeon James Terrazas DO Multilith Operator Sudheer Minor PAC Estimated Blood Loss 250 Findings Consistent with Post-Op Diagnosis Specimens Right femoral head Complications none Disposition Disposition: Recovery Room Indications Heather is a pleasant 89-year-old female who presented my office with complaints of chronic increasing right hip and groin pain. X-rays and clinical examination have been diagnostic for advanced osteoarthritis of the right hip. After failing conservative treatment, she elected to proceed with a right anterior total hip arthroplasty. Description of Procedure Implants used I used a Biomet Taperloc total hip arthroplasty system with a size 15 high offset Taperloc stem, a 50 mm G7 cup with a 25mm screw, an E1 polyethylene liner, a 36 mm ceramic head with a 0 neck. Heather arrived at the hospital for the above procedure. She was seen in the preoperative holding area and the operative extremity was identified and signed. She was given a preoperative antibiotic and TXA. She was then taken back to the operating room and laid on the table in the supine position. She was given general anesthesia. The operative leg was secured to a Puristst leg positioner. The hip was then prepped and draped in sterile fashion. A timeout was done and the patient and the operative extremity was properly identified. An anterior approach was used. Dissection was taken down through the fascia and the tensor muscle belly was retracted laterally and the rectus was retracted medially. The circumflex vessels were identified and ligated. The capsule was then incised and tagged for later repair. The femoral neck was then cut and the femoral head was removed. The acetabulum was exposed. Time was spent doing a complete circumferential labral release. Sequential reaming of the acetabulum up to a size 49 reamer was done. Final reamings were done under fluoroscopy to ensure appropriate version. A Biomet 50 mm G7 cup was then impacted into place. A single 25 mm screw was placed. The E1 polyethylene liner was then snapped into place. Surrounding soft tissues were then injected with 100 cc of an orthopedic pain control cocktail. The proximal femur was then exposed. Sequential broaching up to a size 15 broach was done. Off that broach a size 36 head with a 0 neck was trialed. The hip was reduced and fluoroscopic images showed anatomic alignment of the implants in acceptable length. The broach was removed. The final size 15 standard offset Taperloc stem was then impacted into place. A ceramic 36 mm head with a 0 neck was then impacted onto the stem and the hip was reduced. Final fluoroscopic images showed anatomic alignment of the hip. The capsule was then closed with #1 Vicryl suture. A dilute betadyne lavage was then done for 3 minutes. The joint was then irrigated with normal saline solution. The fascia was closed with #1 PDS suture. Skin was closed with 2-0 Vicryl, edgar, and a Silverlon dressing. She was then transferred to a hospital bed and taken to the post anesthesia care unit in stable condition. She tolerated the procedure well. Sudheer Singleton PA-C, was present for the entire procedure. He was critical for patient positioning, prepping, draping, retraction exposure, wound closure and application of sterile dressing. I attest to the content of the Intraoperative Record and any orders documented therein. Any exceptions are noted below.
--- NOTE | 2020-01-12 13:40 | Fluoroscopy Report ---
FL hip RT 1V HISTORY: 89 years-old Female ANTERIOR RT SHANTI right hip total joint arthroplasty COMPARISON: Pelvis radiograph 12/06/2019 TECHNIQUE: 2 spot fluoroscopic images of the right hip were obtained utilizing 24.8 seconds fluorosco py time FINDINGS: Right hip total joint arthroplasty demonstrates satisfactory alignment. No acute fracture or unexpect ed retained foreign body. Expected postsurgical soft tissue swelling and deep tissue air. IMPRESSION: Fluoroscopic assistance as above. Please see operative report for further details. ACT 112: Negative or not required by law. The above report was generated using voice recognition software. It may contain grammatical, syntax o r spelling errors. Electronically signed by: Robel Marie M.D. 01/12/2020 1:39 PM
--- NOTE | 2020-01-12 14:44 | XRay Report ---
AP PELVIS, CROSSTABLE LATERAL RIGHT HIP History: Right total hip arthroplasty. Degenerative arthritis. Postop. FINDINGS: The patient is status post a right total hip arthroplasty. The hardware is intact. No fract ure or dislocation. Skin edgar are in place. IMPRESSION: Right total hip arthroplasty. No evidence for hardware complication ACT 112: Negative or not required by law. Electronically signed by: Saad Zambrano M.D. 01/12/2020 2:43 PM
[2020-01-12] MEDS ORDERED: MAGNESIUM HYDROXIDE SUSP 30 ML UDC PO PRN (15:28)
[2020-01-12] MEDS ORDERED: bisacodyL 10 MG SUPP PR PRN (15:28)
[2020-01-12] MEDS ORDERED: TRAMADOL HCL 50 MG TABLET PO PRN (15:28)
[2020-01-12] MEDS ORDERED: NALOXONE HCL 0.4 MG/1 ML VIAL/CARP IV PRN (15:28)
[2020-01-12] MEDS ORDERED: HYDROmorphone INJ 0.5 MG/0.5 ML SYR IV PRN (15:28)
[2020-01-12] MEDS ORDERED: METOCLOPRAMIDE HCL INJ 5 MG/ML 2 ML VIAL IV PRN (15:28)
[2020-01-12] MEDS: SODIUM CHLORIDE 0.9% 1000ML 1,000 ML IV SCH (15:50)
[2020-01-12] MEDS: ACETAMINOPHEN 500 MG TAB PO SCH ×2 (15:50→21:06)
--- NOTE | 2020-01-12 17:04 | Anesthesiology Progress Note ---
Date of Service January 12, 2020 Anesthesia Post Procedure Vital Signs Vital Signs: Temp Pulse Pulse Pulse Resp BP BP 01/12/20 15:52 94 H 15 108/60 01/12/20 15:22 94 H 16 126/63 01/12/20 15:00 36.5 C 96 H 18 121/57 L 01/12/20 14:35 37.1 C 96 H 12 129/61 01/12/20 14:25 93 H 13 107/64 01/12/20 14:15 91 H 12 121/59 L 01/12/20 14:05 84 12 97/46 L 01/12/20 13:58 36.6 C 85 12 95/42 L 01/12/20 09:30 37.1 C 98 H 18 144/70 H Pulse Ox 01/12/20 15:52 98 01/12/20 15:22 99 01/12/20 15:00 96 01/12/20 14:35 97 01/12/20 14:25 97 01/12/20 14:15 99 01/12/20 14:05 96 01/12/20 13:58 95 01/12/20 09:30 96 Transfer of Care Handoff Completed per policy Notes Mental Status: alert / awake / arousable Patient Amnestic to Procedure: Yes Nausea / Vomiting: adequately controlled Pain: adequately controlled Airway Patency, RR, SpO2: stable & adequate BP & HR: stable & adequate Hydration State: stable & adequate Anesthetic Complications: no major complications apparent
[2020-01-12] MEDS: CEFAZOLIN 1000MG 1,000 MG/7.5 ML SYR IV SCH (19:11)
[2020-01-12] MEDS: ASPIRIN 81 MG ECTAB PO SCH (21:06)
[2020-01-12] MEDS: DOCUSATE SODIUM 100 MG CAP PO SCH (21:06)
[2020-01-12] MEDS: SENNA 8.6 MG TAB PO SCH (21:06)
[2020-01-13] MEDS: SODIUM CHLORIDE 0.9% 1000ML 1,000 ML IV SCH (02:01)
[2020-01-13] MEDS: CEFAZOLIN 1000MG 1,000 MG/7.5 ML SYR IV SCH (03:13)
[2020-01-13] MEDS: ACETAMINOPHEN 500 MG TAB PO SCH ×3 (05:44→20:14)
[2020-01-13 07:16] LABS: BUN Creatinine Ratio 25.2 (10-20); Calcium 8.4 mg/dl (8.5-10.1); Creatinine Clr Calc Pharmacy 32.5 ml/min; Est GFR (Non-African American) 51.8; Potassium 3.8 mmol/L (3.5-5.1)
[2020-01-13 07:23] LABS: Hematocrit (blood only) 34.7 % (37-47); Hemoglobin 11.2 g/dL (12.0-16.0); Mean Corpuscular Hemoglobin 28.8 pg (25-34); Mean Corpuscular Hgb Conc 32.3 g/dL (32-36); Mean Corpuscular Volume 89.2 fL (80-100); Mean Platelet Volume 12.1 fL (7.4-10.4); Platelet Count 127 K/uL (130-400); RDW Coefficient of Variation 13.8 % (11.5-14.5); RDW Standard Deviation 45.3 fL (36.4-46.3); Red Blood Count 3.89 M/uL (4.2-5.4); White Blood Count 12.28 K/uL (4.8-10.8)
[2020-01-13 07:27] LABS: Eosinophils # (auto) 0.03 K/uL (0-0.5); Eosinophils % (auto) 0.2 %; Immature Granulocytes # (auto) 0.07 K/uL (0.00-0.02); Immature Granulocytes % (auto) 0.6 %; Lymphocytes # (auto) 0.94 K/uL (1.2-3.4); Lymphocytes % (auto) 7.7 %; Monocytes # (auto) 1.45 K/uL (0.11-0.59); Monocytes % (auto) 11.8 %; Neutrophils # (auto) 9.79 K/uL (1.4-6.5); Neutrophils % (auto) 79.7 %; Platelet Estimate Decreased (Normal)
--- NOTE | 2020-01-13 07:35 | Orthopedic Progress Note ---
Date of Service January 13, 2020 Assessment & Plan (1) Status post right hip replacement: Overall she is doing very well. She is not having much pain on the right hip. She is taking aspirin for DVT prophylaxis. She will be seen by physical therapy today for ambulation and range of motion exercises. She will also be seen by case management. She lives by her self near [facility]. She does have friends and family, and members of the catholic who want to help take care of her. We will keep her in the hospital today and plan discharge tomorrow. Present on Admission?: Yes Admission and Anticipated Discharge Date Admission Date: January 12, 2020 Tamela Romero was seen and examined at bedside this morning. Overall she is doing very well. She is not having much pain in the right hip. She has been up and ambulating to the bathroom. She has no complaints. Physical Exam Musculoskeletal: On physical examination of the right hip, the Silverlon dressing is clean and dry. Her leg lengths are equal. She has active dorsiflexion and plantarflexion of the right ankle. Results & Data ([facility]) Vital Signs (Past 12 Hours) Vital Signs Temp Pulse Resp BP Pulse Ox 01/13/20 03:33 36.5 C 77 15 123/63 92 01/13/20 00:02 36.4 C L 72 14 116/60 94 Laboratory Results H & H 12/15/19 01/13/20 Range/Units 10:53 06:24 Hgb 13.5 11.2 L (12.0-16.0) g/dL Hct 41.0 34.7 L (37-47) % Coagulation 12/15/19 Range/Units 10:53 INR 1.1 (0.9-1.1) Diagnostic Findings Postoperative x-rays of the right hip show the prosthesis to be in anatomic alignment without any evidence of fracture, dislocation, or loosening. PG Care Time/CCT Total # of Minutes Spent Total Time Spent with Patient: Total time spent is greater than 50% in coordination of care (as documented) at patient's floor/unit and/or counseling patient: Coding Level of Care Code None Diagnoses Status post right hip replacement Z96.641
[2020-01-13] MEDS ORDERED: dexAMETHasone 4 MG TAB PO SCH (08:00)
[2020-01-13] MEDS ORDERED: NON-FORMULARY MEDICATION (Potassium 99 MG) PO SCH (09:00)
[2020-01-13] MEDS: hydroCHLOROthiazide 25 MG TAB PO SCH (09:09)
[2020-01-13] MEDS: CALCIUM 600MG + VIT D 400 IU TAB PO SCH (09:10)
[2020-01-13] MEDS: MULTIVITAMIN TAB PO SCH (09:10)
[2020-01-13] MEDS: ASPIRIN 81 MG ECTAB PO SCH ×2 (09:11→20:14)
[2020-01-13] MEDS: DOCUSATE SODIUM 100 MG CAP PO SCH ×2 (09:11→20:13)
[2020-01-13] MEDS: SENNA 8.6 MG TAB PO SCH (20:13)
[2020-01-14] MEDS: ACETAMINOPHEN 500 MG TAB PO SCH ×2 (05:19→13:33)
[2020-01-14] MEDS: CALCIUM 600MG + VIT D 400 IU TAB PO SCH (08:02)
[2020-01-14] MEDS: hydroCHLOROthiazide 25 MG TAB PO SCH (08:02)
[2020-01-14] MEDS: MULTIVITAMIN TAB PO SCH (08:03)
[2020-01-14] MEDS: ASPIRIN 81 MG ECTAB PO SCH (08:03)
[2020-01-14] MEDS: DOCUSATE SODIUM 100 MG CAP PO SCH (08:03)
--- NOTE | 2020-01-14 08:14 | Orthopedic Progress Note ---
Date of Service January 14, 2020 Assessment & Plan (1) Status post right hip replacement: Overall she is doing very well. She does not need much pain in the right hip. She will be seen by physical therapy again today for ambulation and range of motion exercises. She is on aspirin for DVT prophylaxis. She can be discharged home later today with home health. She will follow-up with orthopedics in 2 weeks. Present on Admission?: Yes Admission and Anticipated Discharge Date Admission Date: January 12, 2020 Tamela Romero was seen and examined at bedside this morning. Overall she is doing very well. She is not having much pain in the right hip. She did very well yesterday with physical therapy. She has no complaints. Physical Exam Musculoskeletal: On physical examination of the right hip, the dressing is clean and dry. Her leg lengths are equal. She has no complaints. Results & Data ([facility]) Vital Signs (Past 12 Hours) Vital Signs Temp Pulse Resp BP Pulse Ox 01/14/20 00:02 37.0 C 89 14 132/62 94 PG Care Time/CCT Total # of Minutes Spent Total Time Spent with Patient: Total time spent is greater than 50% in coordination of care (as documented) at patient's floor/unit and/or counseling patient: Coding Level of Care Code None Diagnoses Status post right hip replacement Z96.641
--- NOTE | 2020-01-14 08:16 | Discharge Summary ---
Date of Service January 14, 2020 Admission HPI Per Admitting Provider Heather is a pleasant 89-year-old female who lives alone up in the [facility]. She has friends and family nearby. She normally ambulates without assistance but over the past few months she has been ambulating with a cane and more of a wheelchair. She is having severe right hip and groin pain. She cannot tolerate it anymore. X-rays and clinical examination have been diagnostic for advanced osteoarthritis of the right hip. After failing conservative treatment, she has elected to proceed with a right anterior total hip arthroplasty. Principal Diagnosis Status post right hip replacement Discharge Data Allergies Allergy/AdvReac Type Severity Reaction Status Date / Time amoxicillin [From Augmentin] Allergy Mild Rash Verified 01/12/20 09:20 clavulanic acid Allergy Mild Rash Verified 01/12/20 09:20 Penicillins Allergy Mild Rash Verified 01/12/20 09:20 Consultations 01/13/20 08:00 Consult Case Management - Discharge Planning Routine Procedures Performed Operation Date: 01/12/20 11:20 Actual Procedures p Right Anterior Total Hip Arthroplasty(Right) - James Terrazas DO Ordered Studies 01/12/20 11:20 FL fluoroscopy <1hr Routine FL hip RT 1V Routine Hospital Course (1) Status post right hip replacement: On January 12, [address] [facility] [place] and underwent a right hip replacement without complication. She had a general anesthetic. Postoperatively she was started on aspirin for DVT prophylaxis and transferred to the general orthopedic floors. Her hospital course was uneventful. On postop day #1 her H&H was stable and her pain was well controlled. She was able to participate well with physical therapy doing ambulation and range of motion exercises. On postop day #2 she continued to do well. She participated well once again with physical therapy. She was then discharged home with home health. She will follow-up with orthopedics in 2 weeks. Total Time Total Time Spent Total Time Spent (In Minutes): 20 Discharge Plan Discharge Items Patient Disposition: Home - Home Health Services Reason For Visit: DJD Right Hip Discharge Diagnosis: Right hip replacement Activity: As commented below Non-emergency contact: Surgeon Call non-emergency contact if: your wound has increased redness and your wound has increased drainage Follow-up/Referrals: Ibis Jarrett MD [Primary Care Provider] - Diet: Regular Addtl Attending Provider Instructions: Activity and Therapy Recommendations: * If you are using [facility] then therapy will be provided at your home until they feel you have accomplished all of your goals. * If you are using [facility] then Physical Therapy will be provided until they feel you are ready to start Outpatient Physical Therapy. * If you are not using home therapy then Outpatient Physical Therapy should start about 3-5 days from your day of surgery. Therapy will last about 6-10 weeks * You were shown a series of exercises in the hospital. Do these exercises three times each day including the exercises you were shown in physical therapy. * Get up and walk several times each day.~ For the first four weeks, try not to stand or walk for more than one hour at a time. If you do stand or walk for more than one hour, you will not hurt anything, but your leg will likely swell.~~ * As you feel comfortable, you may change from the walker or crutches to a cane and~then to independent walking. Medications: * Narcotic You will likely be sent home from the hospital with a prescription for the narcotic pain medication that worked best throughout your stay. * Aspirin Most patients will be required to take Aspirin 81mg twice a day for 6 weeks after surgery. This is obtained [id number] and a prescription is not necessary. * Other medications may be prescribed for specific circumstances. If you have any questions, please call the office at . * Resume previous home medications unless otherwise instructed TEDs/Elastic Stockings: The white elastic stockings help limit swelling and prevent blood clots from forming in your legs. The more you wear them, the more they work. Wear them for six weeks. Dressing Care: Leave the Silverlon dressing in place for 7 days. After 7 days you may remove the dressing. If the incision is not draining then you may leave the edgar open to air. If there is a little bit of drainage or if the edgar are getting stuck on your clothing then cover the incision with a dry dressing. The edgar will be removed at your 2 week follow-up appointment. Showering: You may shower with the Silverlon dressing in place. Do not let the shower spray hit the dressing directly. Pat the Silverlon dressing dry. If the dressing becomes wet underneath, then simply remove the dressing. Keep the incision dry until you are 7 days out from the day of surgery. After 7 days you may remove the Silverlon dressing and shower with the edgar exposed. Let soapy water run over the edgar and pat them dry. Do not scrub or soak the incision. Things To Watch For: * Drainage from the incision site that occurs more than one week after your surgery. * Increased redness at the incision site. * Fever above 102 degrees Fahrenheit. * Unusual chest pain or shortness of breath. * Call [facility] at with any of the above problems Follow-Up Visit: Follow-up with Dr. Terrazas's PA (James Palomo) 2-3 weeks after your day of surgery. He will remove your edgar and answer any questions. If you have any additional questions or concerns, Dr Terrazas is usually in the office at the same time and will be available An appointment was probably scheduled when you signed-up for surgery in the office. If you have any questions call Office Instructions: More detailed instructions as well as Frequently Asked Questions were provided in a folder by our office when you signed-up for surgery. Please review these instructions when you get home. If you have any further questions or concerns, please feel free to call the office at [phone] Pending Studies at Discharge: No Stand-Alone Forms: My [facility], Smoking Cessation Medications and DC Order Prescriptions: Continued hydrochlorothiazide 25 mg tablet 25 mg PO QAM Qty: 90 RF: 3 potassium 99 mg tablet 99 mg PO DAILY RF: 0 multivitamin Tablet 1 tab PO QAM RF: 0 Calcium 600 + D(3) 600 mg calcium- 200 unit Capsule 1 cap PO QAM RF: 0 Changed tramadol 50 mg tablet 50 mg PO Q8H PRN (Reason: pain) Qty: 30 RF: 0 aspirin [Aspir-81] 81 mg Tablet,Delayed Release (Dr/Ec) 81 mg PO BID 42 Days Qty: 0 RF: 0 Discharge Orders: Discharge Order (Routine); Ordered 01/14/20 Ordered By: James Terrazas Admission Data Admit Date/Time: 01/12/20 13:43 Attending Provider: James Terrazas Admit Provider: James Terrazas Primary Care Provider: Ibis Jarrett Coding Level of Care Code D/C Day Management <30 mins Diagnoses Status post right hip replacement Z96.641
== END 2020-01-14 14:22 | disposition home health service (06) ==
LOC: ASU 08:46 → 3E 08:46